=== PATIENT | female | born 1940 | race Caucasian/White ===

== ENCOUNTER 2021-01-20 20:38 | Emergency (ER) | payer MEDICARE, MEDICAID ==
[2021-01-20 21:42] LABS: BASO # 0.04 (0.02-0.10); EOS # 0.13 (0.04-0.40); HEMOGLOBIN 12.6 g/dL (12.5-16.0); LYMPH# 1.82 (1.50-4.00); MEAN CELL VOLUME 94 fl (78-100); MEAN CORPUSCULAR HEMOGLOBIN 31 pg (27-31); MEAN CORPUSCULAR HGB CONC 33 g/dL (33-37); MEAN PLATELET VOLUME 10.2 fl (7.4-10.4); MONO # 0.54 (0.20-0.80); NEU # 4.06 (1.40-6.50); PLATELET COUNT 185 K/mm3 (130-400); RED BLOOD COUNT 4.03 M/mm3 (4.10-5.30); RED CELL DISTRIBUTION WIDTH 12.9 % (11.5-14.5); WHITE BLOOD COUNT 6.6 K/mm3 (4.8-10.8)
[2021-01-20 21:53] LABS: POTASSIUM 4.2 mmol/L (3.5-5.1)
[2021-01-20 21:54] LABS: CALCIUM 9.3 mg/dL (8.3-10.5)
[2021-01-20 22:12] LABS: D-DIMER 0.48 mg/L FEU (0.15-0.50)
[2021-01-20 22:46] VITALS: BP 136/64
[2021-01-21] MEDS ORDERED: VICTOZA 3-0.6 MG/0.1 SQ (00:29)
[2021-01-21] MEDS ORDERED: CLOPIDOGREL PO (00:30)
[2021-01-21] MEDS ORDERED: LEVEMIR FLEX100 U/ML SQ (00:30)
[2021-01-21] MEDS ORDERED: ALTACE 10MG TAB10 MG PO (00:30)
[2021-01-21] MEDS ORDERED: GLUCOTROL 5M5 MG/TAB PO (00:30)
[2021-01-21] MEDS ORDERED: PROTONIX TR40 M1 PO (00:31)
[2021-01-21] MEDS ORDERED: LIPITOR 80MG80 MG PO (00:31)
[2021-01-21] MEDS ORDERED: LOW DOSE ASPIRI81 M1 PO (00:31)
[2021-01-21] MEDS ORDERED: BYSTOLIC10 MG PO (00:31)
[2021-01-21] MEDS ORDERED: BENTYL 20MG20 MG/TAB PO (00:32)
[2021-01-21] MEDS ORDERED: OPTIMUM VITAMIN1 TAB PO (00:33)
[2021-01-21] MEDS ORDERED: VITAMIN D3250 MC2 PO (00:33)
[2021-01-21] MEDS ORDERED: ALDACTONE25 M1 PO (00:34)
[2021-01-21] MEDS ORDERED: LASIX20 M1 PO (00:34)
== END 2021-01-20 22:46 | disposition home or self-care (01) ==
LOC: ED 20:38
PROVIDERS: Physician Assistant
DX: M79.662 Pain in left lower leg (principal); E11.9 Type 2 diabetes mellitus without complications; I11.0 Hypertensive heart disease with heart failure; Z88.0 Allergy status to penicillin; Z79.4 Long term (current) use of insulin
CPT/HCPCS: J1650

== ENCOUNTER → 2021-01-21 | Outpatient (CLI) | payer MEDICARE, MEDICAID ==
[2021-01-20 22:46] VITALS: BP 136/64
[~2021-01-21] MED LIST: ALDACTONE25 M1 PO; ALTACE 10MG TAB10 MG PO; BENTYL 20MG20 MG/TAB PO; BYSTOLIC10 MG PO; CLOPIDOGREL PO; GLUCOTROL 5M5 MG/TAB PO; LASIX20 M1 PO; LEVEMIR FLEX100 U/ML SQ; LIPITOR 80MG80 MG PO; LOW DOSE ASPIRI81 M1 PO; OPTIMUM VITAMIN1 TAB PO; PROTONIX TR40 M1 PO; VICTOZA 3-0.6 MG/0.1 SQ; VITAMIN D3250 MC2 PO
== END ==
LOC: VAS 09:54 → RAD 23:01
DX: M79.662 Pain in left lower leg (principal)